=== PATIENT | male | born 1975 | race Caucasian/White ===

== ENCOUNTER → 2017-06-03 | Day surgery (SDC) | payer OTHER ==
[2017-05-27 15:33] VITALS: Ht 180.3 cm; Wt 109.1 kg
[~2017-06-03] VITALS: Ht 180.3 cm; Wt 109.1 kg
[~2017-06-03] MED LIST: ATROPINE SULFATE 0.1 MG/ML 5ML SYR IV PRN; BUPIVACAINE/EPINEPHRINE 0.25% 1:200,000 30 ML VIAL ONE; CEFAZOLIN 2000MG IV PUSH 10 ML IV SCH; DEXAMETHASONE SOD INJ 4 MG/ML VIAL ONE; EpHEDrine SULFATE INJ 50 MG/ML AMP IV PRN; EpINEphrine INJ 1MG/ML AMP 1 MG/ML AMP ONE; FENTANYL CITRATE INJ 50 MCG/1 ML 2 ML VIAL IV PRN; FENTANYL CITRATE INJ 50 MCG/1 ML 2 ML VIAL ONE; KETO10TA PO; KETOROLAC TROMETHAMINE 30 MG/ML VIAL ONE; LACTATED RINGER'S 1000ML 1,000 ML IV SCH; LIDOCAINE HCL 2% 2 ML VIAL (20MG/ML) ONE; METHYLPREDNISOLONE ACETATE 80 MG/ML VIAL ONE; MIDAZOLAM HCL 1 MG/ML 2ML VIAL ONE; MULTTAB58 PO; ONDANSETRON INJ 2 MG/ML 2 ML VIAL IV PRN; ONDANSETRON INJ 2 MG/ML 2 ML VIAL ONE; OXYC-57 PO; OXYCODONE/ACETAMINOPHEN 5-325 TAB PO PRN; PROPOFOL IV EMULSION 10 MG/ML 20 ML VIAL IV ONE; ROPIVACAINE 0.5% 5 MG/ML 30 ML VIAL ONE; SODIUM CHLORIDE 0.9% 1000ML 1,000 ML IV SCH
--- NOTE | 2017-06-03 07:51 | History & Physical Bridge Note ---
H&P Re-Evaluation Bridge Note: I have examined the patient, reviewed the History & Physical and in the interval since the performance of the History & Physical I have noted the following changes of clinical significance: No changes noted
--- NOTE | 2017-06-03 09:45 | [facility] Post Operative Brief Note ---
Immediate Operative Summary Operative Date Jun 03, 2017. Pre-Operative Diagnosis Right Shoulder Adhesive Capsulitis Post-Operative Diagnosis Same Procedure(s) Performed Right Shouder Arthroscopic Capsular Release, Removal of Loose Body Surgeon Dr. Segura Inside [employer] Surgeon(s) Kenneth Meadows PA-C Estimated Blood Loss 5ML Findings as above Specimens Same Complication(s) None Disposition Recovery Room / PACU
--- NOTE | 2017-06-03 09:49 | Discharge Instructions-SurgCtr ---
Discharge Instructions Date of Service Jun 03, 2017. Visit Reason for Visit: Adhesive Capsulitis Discharge Discharge Diagnosis / Problem: SAME ABOVE Discharge Goals Goal(s): Decrease discomfort, Improve function Activity Recommendations Activity Limitations: as noted below Lifting Limitations: gradually increase as tolerated Exercise/Sports Limitations: gradually increase as tolerated Driving or Machine Use: WHEN OUT OF THE SLING AND OFF PAIN MEDICATION Anesthesia . Post Anesthesia Instructions: If you have had General Anesthesia or IV Sedation: * Do not drive today. * Resume driving when surgeon permits. * Do not make important decisions or sign legal documents today. * Call surgeon for: 1. Temperature elevations greater than 101 degrees F. 2. Uncontrollable pain. 3. Excessive bleeding. 4. Persistent nausea and vomiting. 5. Medication intolerance (nausea, vomiting or rash). * For nausea and vomiting use only clear liquids such as: tea, soda, bouillon until nausea subsides, then gradually increase diet as tolerated. * If you have any concerns or questions, call your surgeon's office. If physician is unavailable and it is an emergency, call 911 or go to the nearest emergency room. . Instructions / Follow-Up Instructions / Follow-Up MEDICATIONS: * Resume previous medications unless instructed otherwise by your surgeon. * Always take pain medication on a full stomach or with food to avoid upset stomach. * Do not drink alcohol or drive while taking narcotics. * Ibuprofen or Tylenol may be taken if narcotic not needed. SPECIAL CARE INSTRUCTIONS: __ None _X_ Keep extremity elevated and iced x 48 hours; apply ice 20-30 minutes 8-10 times/day. May remove at night. _X_ Sling (WEAR FOR COMFORT ONLY) __24 hrs/day __ Remove at night __ Shoulder Immobilizer __ 24 hrs/day __ Remove at night _X_ Dressing __ Maintain until seen in office, may shower with plastic over site _X_ Remove dressings in 24-48 hours and then may shower _X_ Cover incisions with band-aids after showering __ Do not remove steri-strips Call physician if chills or temperature rises above 102 degrees or pain unrelieved by prescribed pain medications at . . Diet Recommendations Home Diet: no limitations Fluid Restriction: None Procedures Procedures Performed: Right Shouder Arthroscopic Capsular Release, Removal of Loose Body Pending Studies Studies pending at discharge: no Work Instructions Return To Work: 3 days (OR WHEN PAIN IS CONTROLLED ) Medical Emergencies . Who to Call and When: Medical Emergencies: If at any time you feel your situation is an emergency, please call 911 immediately. . Non-Emergent Contact Non-Emergency issues call your: Primary Care Provider Call Non-Emergent contact if: you have a fever, temperature is above 101.5 . . "Provider Documentation" section prepared by Zay Meadows. .
--- NOTE | 2017-06-03 10:17 | OPERATIVE REPORT ---
DATE OF OPERATION: 06/03/2017 PREOPERATIVE DIAGNOSIS: Adhesive capsulitis of the right shoulder with osteoarthritis. POSTOPERATIVE DIAGNOSIS: Same. PROCEDURES: Right shoulder diagnostic arthroscopy with extensive debridement, lysis of adhesions, removal of loose body and manipulation under anesthesia. SURGEON: Dr. Heber Segura. MANAGER BIOLOGICS: Skip Meadows PA-C, whose assistance was necessary for positioning the arm and helping with instrumentation. ANESTHESIA: General with a right interscalene nerve block. COMPLICATIONS: None. CONDITION: Stable to PACU. INDICATIONS: Walt is a pleasant 42-year-old male who underwent an extensive labral repair and biceps tenodesis at an outside institution. Postoperatively, he had significant tightness in his shoulder and pain. Followup MRI did not show much, but x-rays did show some obvious arthritis. After failing conservative treatment, he came to my office for a second opinion and elected to undergo diagnostic arthroscopy with capsular release and a cleanup of the cartilage fragments. DESCRIPTION OF PROCEDURE: On 06/03/2017, he arrived at [facility] for the above procedure. He was seen in the preoperative holding area and the operative extremity was identified and signed. He was given a preoperative antibiotic and a right interscalene nerve block. He was taken back to the operating room, laid on the table in supine position and put under general anesthesia. He was then put into the beachchair position. The right shoulder was prepped and draped in the sterile fashion. Time-out was done and the patient's operative extremity was properly identified. On preoperative examination, he had about 80 degrees of abduction, but only about 10 degrees of external rotation. A scope was placed in the posterior portal. Diagnostic arthroscopy showed significant grade 3 and grade 4 chondral damage on the center of the humeral head. The glenoid was fully intact. There was an anchor in the superior glenoid and a knot stack that had subluxated inferiorly and was rubbing into the humeral head. There was also a large loose body that was in the anterior superior aspect of the shoulder. An anterior portal was made. A shaver, a biter and an open-end cutter were used to remove the knot stacks. A shaver was used to do a complete chondroplasty of the humeral head and remove all the loose cartilage fragments. Time was then spent removing a rather large loose body that was around the biceps winston mechanism. The loose body was about 1.5 cm in diameter. This was removed with a shaver and then a grasper. There was a soft tissue that seemed to be pulled into where the biceps tenodesis was done. The soft tissue was released and the suture from the biceps tenodesis anchor was removed. The rotator cuff was evaluated and completely intact. He still had some tightness with external rotation. I then did continued debridement and lysis of adhesions of the entire rotator interval including to the undersurface of the coracoid. I then released the middle and anterior inferior glenohumeral ligaments with care not to disrupt the subscapularis or the axillary nerve. I removed the knot stacks as well along the way. I placed the camera then in the anterior portal and from the posterior portal, I used a curved shaver to complete a chondroplasty and to remove any inflamed posterior capsule and labrum. After I was happy with the overall release, arthroscopic instruments were removed from the shoulder. I did a manipulation under anesthesia. I was able to manipulate the shoulder further and get about 65 degrees of external rotation. He had about 100 degrees of abduction with the scapula stabilized. The shoulder felt close to normal. The scope was placed back into the glenohumeral joint. A final diagnostic arthroscopy showed no additional pathology. A shaver was used to remove any excess debris. Hemostasis was controlled. A spinal needle was placed for an injection. Arthroscopic instruments were removed from the shoulder. Portal sites were closed with 3-0 nylon. The shoulder was then injected with 80 mg of Depo-Medrol and 5 mL of Marcaine. He was then placed in a soft compressive dressing, extubated, transferred to a [facility] and taken to the postanesthesia care unit in stable condition. He tolerated the procedure well. I attest to the content of the Intraoperative Record and any orders documented therein. Any exception s are noted below.
[2017-06-03 10:44] VITALS: TEMP 36.4
[2017-06-03 11:12] VITALS: BP 129/86; PULSE 66; O2SAT 97
--- NOTE | 2017-06-03 11:19 | Anesthesia Progress Nt - [facility] ---
Anesthesia Post Op Note Date & Time Jun 03, 2017 at 11:19 Vital Signs Pain Intensity: 0 Vital Signs Past 12 Hours Date Time Temp Pulse Resp B/P (MAP) Pulse Ox O2 Delivery O2 Flow Rate FiO2 06/03/17 11:12 66 16 129/86 (100) 97 Room Air 06/03/17 10:44 36.4 86 16 138/81 (100) 98 Room Air 06/03/17 10:35 131/80 06/03/17 10:34 66 14 97 06/03/17 10:34 68 14 06/03/17 10:32 36.5 63 14 131/80 98 Room Air 06/03/17 10:30 136/84 06/03/17 10:29 67 11 06/03/17 10:29 69 11 98 06/03/17 10:25 126/81 06/03/17 10:24 62 16 97 06/03/17 10:24 61 16 06/03/17 10:20 134/75 06/03/17 10:19 63 17 06/03/17 10:19 63 17 100 06/03/17 10:15 125/79 06/03/17 10:14 58 16 100 06/03/17 10:14 58 16 06/03/17 10:10 128/75 06/03/17 10:09 57 15 06/03/17 10:09 59 15 100 06/03/17 10:05 134/83 06/03/17 10:04 60 14 100 06/03/17 10:04 61 14 06/03/17 10:00 134/81 06/03/17 09:59 61 16 06/03/17 09:59 60 16 100 06/03/17 09:55 128/81 06/03/17 09:54 59 14 06/03/17 09:54 58 14 100 06/03/17 09:50 133/76 06/03/17 09:49 36.0 78 16 131/93 100 Mask 6 06/03/17 09:49 72 15 131/93 100 06/03/17 09:49 71 15 06/03/17 08:29 27 06/03/17 08:28 62 06/03/17 08:28 62 16 99 06/03/17 08:25 149/77 06/03/17 08:23 66 15 99 06/03/17 08:23 64 06/03/17 08:22 152/87 06/03/17 08:22 67 14 152/87 (108) 96 Mask 5 06/03/17 07:11 36.7 71 20 130/93 (105) 95 Room Air Notes Mental Status: alert / awake / arousable, participated in evaluation Pt Amnestic to Procedure: Yes Nausea / Vomiting: adequately controlled Pain: adequately controlled Airway Patency, RR, SpO2: stable & adequate BP & HR: stable & adequate Hydration State: stable & adequate Anesthetic Complications: no major complications apparent
== END | disposition home or self-care (01) ==
LOC: X.SURG 06:28
PROVIDERS: ATTEND Orthopaedic Surgery
DX: M75.01 Adhesive capsulitis of right shoulder (principal); M19.011 Primary osteoarthritis, right shoulder; E66.9 Obesity, unspecified; Z68.33 Body mass index [BMI] 33.0-33.9, adult

== ENCOUNTER 2017-09-13 15:35 | Emergency (ER) | payer OTHER ==
[~2017-09-13] VITALS: Ht 180.3 cm; Wt 112.5 kg
[~2017-09-13 15:35] MED LIST changes: -ATROPINE SULFATE 0.1 MG/ML 5ML SYR IV PRN; -BUPIVACAINE/EPINEPHRINE 0.25% 1:200,000 30 ML VIAL ONE; -CEFAZOLIN 2000MG IV PUSH 10 ML IV SCH; -DEXAMETHASONE SOD INJ 4 MG/ML VIAL ONE; -EpHEDrine SULFATE INJ 50 MG/ML AMP IV PRN; -EpINEphrine INJ 1MG/ML AMP 1 MG/ML AMP ONE; -FENTANYL CITRATE INJ 50 MCG/1 ML 2 ML VIAL IV PRN; -FENTANYL CITRATE INJ 50 MCG/1 ML 2 ML VIAL ONE; -KETOROLAC TROMETHAMINE 30 MG/ML VIAL ONE; -LACTATED RINGER'S 1000ML 1,000 ML IV SCH; -LIDOCAINE HCL 2% 2 ML VIAL (20MG/ML) ONE; -METHYLPREDNISOLONE ACETATE 80 MG/ML VIAL ONE; -MIDAZOLAM HCL 1 MG/ML 2ML VIAL ONE; -ONDANSETRON INJ 2 MG/ML 2 ML VIAL IV PRN; -ONDANSETRON INJ 2 MG/ML 2 ML VIAL ONE; -OXYCODONE/ACETAMINOPHEN 5-325 TAB PO PRN; -PROPOFOL IV EMULSION 10 MG/ML 20 ML VIAL IV ONE; -ROPIVACAINE 0.5% 5 MG/ML 30 ML VIAL ONE; -SODIUM CHLORIDE 0.9% 1000ML 1,000 ML IV SCH
[2017-09-13 15:46] VITALS: TEMP 36.4; Ht 180.3 cm; Wt 112.5 kg
[2017-09-13] MEDS ORDERED: CYCL10TA6 PO (16:31)
[2017-09-13] MEDS ORDERED: NPR500 PO (16:31)
--- NOTE | 2017-09-13 16:36 | EMERGENCY ROOM VISIT NOTE ---
History First contact with patient: 15:55 Chief Complaint: BACK PAIN Stated Complaint: SEVER LOWER BACK PAIN History of Present Illness The patient is a 42 year old male who presents to the Emergency Room with complaints of low back pain. The patient reports that one week ago, he was stepping off of a ladder and felt a pulling sensation in his low back. He states that the pain increased over the next 15 minutes. He has had intermittent pain since then. The patient reports that he is comfortable while sitting, but he has excruciating pain at times with movement and walking. He states that his back has been "locking up" and when this occurs he has difficulty walking. The patient states the pain is in the left lower back and sometimes radiates into the buttock. He denies any numbness/weakness or urinary symptoms. He states he has a history of back spasms but states these usually resolve without treatment. He has seen Dr. Segura for shoulder problems in the past. He has not taken any medication for the pain. He did try using icy hot and stretching the back. He rates his overall discomfort a 4/ 10. Review of Systems A complete 10 point review of systems was reviewed with the patient with pertinent positives and negatives as per history of present illness. All else were negative. Past Medical/Surgical History Medical Problems: (1) History of Guillain-Coalgood syndrome Social History Smoking Status: Never Smoker Marital Status: Occupation Status: employed Current/Historical Medications Scheduled Cyclobenzaprine Hcl (Flexeril), 10 MG PO TID Naproxen (Naprosyn), 500 MG PO BID Physical Exam Vital Signs Date Time Temp Pulse Resp B/P (MAP) Pulse Ox O2 Delivery O2 Flow Rate FiO2 09/13/17 17:09 71 16 154/81 96 09/13/17 15:46 36.4 86 18 134/93 96 Room Air Physical Exam VITALS: Vitals are noted on the nurse's note and reviewed by myself. Vital signs stable. GENERAL: This is a 42-year-old male, in no acute distress, nondiaphoretic, well- developed well-nourished. SKIN: There are no rashes. HEART: Regular rate and rhythm without murmurs gallops or rubs. LUNGS: Clear to auscultation bilaterally without wheezes, rales or rhonchi. ABDOMEN: Soft, nontender to palpation. MUSCULOSKELETAL: Full range of motion of the back. There is no significant tenderness to palpation to the lumbar spine or paraspinous muscles. Full range of motion and strength 5/5 of bilateral lower extremities. NEURO: Patient was alert and oriented to person place and time. Distal sensation intact. Patellar reflexes 2+ bilaterally. Medical Decision & Procedures Medical Decision Differential diagnosis includes cauda equina syndrome, cord compression, disc herniation, muscle spasm, lumbar strain, epidural abscess, malignancy, transverse myelitis, urinary tract infection, colitis, diverticulitis, kidney stone, among others. The patient was evaluated as above. He presents complaining of low back pain. This is likely musculoskeletal in nature. There is nothing to suggest cauda equina syndrome or cord compression on exam. Conservative measures were discussed at length with the patient. He was given a prescription for Naprosyn and Flexeril. He will follow-up with his primary care provider for further evaluation of his back pain. He verbalized understanding of my assessment and treatment plan and was discharged home in good condition. Medication Reconcilliation Current Medication List: was personally reviewed by me Blood Pressure Screening Patient's blood pressure: Elevated blood pressure Blood pressure disposition: Elevated BP felt to be situational Impression Primary Impression: Lumbar back pain Departure Information Dispostion Home / Self-Care Condition GOOD Prescriptions Cyclobenzaprine Hcl (FLEXERIL) 10 Mg Tab 10 MG PO TID for 5 Days, #15 TAB Prov: Mya Loera PA-C 09/13/17 Naproxen (Naprosyn) 500 Mg Tab 500 MG PO BID for 10 Days, #20 TAB Prov: Mya Loera PA-C 09/13/17 Referrals Kevin Miranda D.O. (PCP) Patient Instructions My [facility] Additional Instructions You have been treated in the Emergency Department for Back Pain. You have been prescribed Flexeril (cyclobenzaprine) 1-2 tabs orally, three times per day. Do NOT exceed 30 mg (6 tabs) per day. Take your first dose at bedtime as it can make you drowsy. Always take all medications as prescribed. For pain control, you can use the following [id number] medicines (if >12 yo): - Regular strength (325mg/tab) Tylenol (acetaminophen) 2 tabs every 4-6 hours as needed. Do not exceed 12 tablets in a 24 hour period. Avoid taking more than 4 grams (4000 mg) of Tylenol per day. This includes any other sources of acetaminophen you may take on a regular basis. - Regular strength (200 mg/tab) Advil (ibuprofen) 3-4 tabs every 4-6 hours as needed. Do not exceed a dose of 3200 mg per day. Apply heat to the area to help soothe the muscles. You may benefit from massage. Gentle exercises okay, but make sure to avoid any heavy lifting or strenuous exercises. You should schedule a follow-up appointment in 2-3 days with your Primary Care Provider for further evaluation and treatment of your back pain. Return to the Emergency Department if your current symptoms worsen despite treatment course outlined above, or if you develop any of the following symptoms : intractable pain despite aforementioned treatment course, loss of control of your bowel or bladder, numbness or tingling in your groin, or development of a fever.
[2017-09-13 17:09] VITALS: BP 154/81; PULSE 71; O2SAT 96
== END 2017-09-13 17:11 | disposition home or self-care (01) ==
LOC: C.EDB 15:36 → C.EDD 17:11
DX: M54.5 Low back pain (principal)